=== PATIENT | male | born 1930 | race Caucasian/White ===

== ENCOUNTER 2020-10-02 01:20 | Emergency (ER) | payer MEDICARE, BC ==
[~2020-10-02] VITALS: Ht 177.8 cm; Wt 86.4 kg
[2020-10-02] MEDS ORDERED: LIDOcaine 1% w/epiNEPHrine 1:200,000 30ml vial IM ONE (01:35)
[2020-10-02] MEDS ORDERED: ketorolac tromethamine 15mg/ml inj. IV ONE (01:35)
[2020-10-02] MEDS ORDERED: HYDROcodone/acetaminophen 5mg/325mg tablet PO ONE (01:35)
[2020-10-02] MEDS ORDERED: LIDOcaine 1% W/epiNEPHrine 1:200,000 10ml vial IJ ONE (01:40)
[2020-10-02] MEDS ORDERED: TRAM50TA2 PO (02:19)
[2020-10-02 03:19] VITALS: BP 47/95
== END 2020-10-02 03:23 | disposition home or self-care (01) ==
LOC: ER 01:21
DX: M54.2 Cervicalgia (principal); I25.10 Atherosclerotic heart disease of native coronary artery without angina pectoris; E78.00 Pure hypercholesterolemia, unspecified; I10 Essential (primary) hypertension; K21.9 Gastro-esophageal reflux disease without esophagitis; Z95.1 Presence of aortocoronary bypass graft; Z79.899 Other long term (current) drug therapy
CPT/HCPCS: 20552; 93005; 96374; 99284; J1885